=== PATIENT | male | born 1995 | race Caucasian/White ===

== ENCOUNTER 2018-11-26 16:05 | Emergency (ER) | payer OTHER ==
--- NOTE | 2018-11-26 17:24 | EDM.PDOC ---
ED HPI GENERAL MEDICAL PROBLEM - General Chief Complaint: Back Pain or Injury Stated Complaint: PAIN Time Seen by Provider: 11/26/18 17:16 Source of Information: Reports: Patient, Family History Limitations: Reports: No Limitations - History of Present Illness INITIAL COMMENTS - FREE TEXT/NARRATIVE: Alert very pleasant 21-year-old gentleman presents the ER for some upper back discomfort. Patient presents with significant mother and father for evaluation. Patient started having some upper back discomfort 2-3 days ago. Unfortunately symptoms of progressively gotten worse. Patient has been doing some pushing pulling lifting twisting and bending but not necessarily new worse or different than typical behavior for activity. Patient states he now has increased pain with deep respirations. He has increased pain with movement. Denies any cough or upper respiratory tract symptoms. Patient denies any fever, chills or sweats shortness of breath or chest pain. Patient is unable to localize pain in his upper back and does radiate around to his abdomen. He denies any pain or burning with urination he denies any diarrhea or constipation he denies any lower back pain. Denies any loss of bowel or bladder function. Denies any urinary concerns. Patient states he had mono last summer and is concerned that he may have recurrent mono. Patient is also concerned that he had a tick bite last fall and was treated for Lyme's disease and has concerns. Patient states yesterday he noticed increase weakness and fatigue while walking around the [place] with his significant other. She has not had a recurrence of that concern. Onset: Gradual Upper Back Pain Score (Numeric/FACES): 6 - Related Data Allergies Allergy/AdvReac Type Severity Reaction Status Date / Time No Known Allergies Allergy Verified 11/26/18 16:59 Home Meds: Home Meds Cyclobenzaprine [Flexeril] 5 - 10 mg PO TID PRN 10 Days #15 tab 11/26/18 [Rx] Past Medical History - Infectious Disease History Infectious Disease History: Reports: Mononucleosis Other Infectious Disease History: tick bite and treated for lyme disease full antibiotic course 1-2 yrs ago Social & Family History - Tobacco Use Smoking Status *Q: Never Smoker - Caffeine Use Caffeine Use: Reports: Coffee - Recreational Drug Use Recreational Drug Use: No ED ROS GENERAL - Review of Systems Review Of Systems: ROS reveals no pertinent complaints other than HPI. ED EXAM,LOWER BACK PAIN/INJURY - Physical Exam Exam: See Below Exam Limited By: No Limitations General Appearance: Alert, WD/WN, No Apparent Distress, Mild Distress Eye Exam: Bilateral Eye: EOMI, PERRL Ears: Normal External Exam, Hearing Grossly Normal Nose: Normal Inspection, Normal Mucosa, No Blood Throat/Mouth: Normal Inspection, Normal Lips, Normal Teeth, Normal Voice, No Airway Compromise Head: Atraumatic, Normocephalic Neck: Normal Inspection, Supple, Non-Tender, Full Range of Motion Respiratory/Chest: No Respiratory Distress, Lungs Clear, Normal Breath Sounds, No Accessory Muscle Use, Chest Non-Tender Cardiovascular: Normal Peripheral Pulses, Regular Rate, Rhythm GI/Abdominal: Normal Bowel Sounds, Soft, Non-Tender, No Organomegaly, No Distention, No Abnormal Bruit, No Mass Back Exam: Normal Inspection, Decreased Range of Motion, Paraspinal Tenderness ( left upper thoracic spine. No midline tenderness or pain with percussion. ) Extremities: Normal Inspection, Normal Range of Motion, Non-Tender, No Pedal Edema, Normal Capillary Refill Neurological: Alert, Normal Mood/Affect, Normal Dorsiflexion, CN II-XII Intact, Normal Plantar Flexion, Normal Gait, Normal Reflexes, No Motor/Sensory Deficits , Oriented x 3 Psychiatric: Normal Affect, Normal Mood Skin Exam: Warm Course - Vital Signs Last Recorded V/S: Last Vital Signs Temp 36.6 C 11/26/18 17:00 Pulse 72 11/26/18 17:00 Resp 14 11/26/18 17:00 BP 154/94 H 11/26/18 17:00 Pulse Ox 99 11/26/18 17:00 - Orders/Labs/Meds Orders: Active Orders 24 hr Category Date Time Status EKG Documentation Completion [RC] ASDIRECTED Care 11/26/18 17:30 Active Chest 2V [CR] Stat Exams 11/26/18 17:29 Taken EKG 12 Lead [EK] Stat Ther 11/26/18 17:29 Ordered Labs: Laboratory Tests 11/26/18 11/26/18 11/26/18 Range/Units 17:29 17:29 17:29 WBC 8.7 (4.5-11.0) K/uL RBC 4.83 (4.30-5.90) M/uL Hgb 15.1 H (12.0-15.0) g/dL Hct 43.9 (40.0-54.0) % MCV 91 (80-98) fL MCH 31 (27-31) pg MCHC 34 (32-36) % Plt Count 134 L (150-400) K/uL Neut % (Auto) 57 (36-66) % Lymph % (Auto) 33 (24-44) % Armstrong % (Auto) 8 H (2-6) % Eos % (Auto) 1 L (2-4) % Baso % (Auto) 1 (0-1) % D-Dimer, Quantitative < 100 (0.0-400.0) ng/mL Sodium 138 L (140-148) mmol/L Potassium 3.8 (3.6-5.2) mmol/L Chloride 102 (100-108) mmol/L Carbon Dioxide 32 (21-32) mmol/L Anion Gap 7.8 (5.0-14.0) mmol/L BUN 14 (7-18) mg/dL Creatinine 1.1 (0.8-1.3) mg/dL Est Cr Clr Drug Dosing 119.04 mL/min Estimated GFR (MDRD) > 60 (>60) Glucose 90 (74-106) mg/dL Calcium 9.4 (8.5-10.1) mg/dL - Radiology Interpretation Free Text/Narrative:: CXR PA/LAT: No significant acute cardiopulmonary findings noted. Radiology report pending. Departure - Departure Time of Disposition: 19:03 Disposition: Home, Self-Care 01 Clinical Impression: Muscle strain, Upper back pain on left side - Discharge Information Prescriptions: Cyclobenzaprine [Flexeril] 5 - 10 mg PO TID PRN 10 Days #15 tab PRN Reason: Muscle Spasm Instructions: Acute Back Pain, Adult, Musculoskeletal Pain Referrals: PCP,None [Primary Care Provider] - Forms: ED Department Discharge Additional Instructions: 1. Ice 15-20 minutes 3-4 times per day alternate with heat 15-20 minutes. 2. Stretch and increase use per comfort. 2. Flexeril 5-10 mg every 6-8 hrs prn muscle spasms and pain. 4. Ibuprofen 600-800mg every 6-8 hrs with food for inflammation pain and swelling. 5. Follow information given. 6. See PCP in 2-3 weeks if not improving sooner if symptoms worsen or concerns. - My Orders Last 24 Hours: My Active Orders 11/26/18 17:29 Chest 2V [CR] Stat EKG 12 Lead [EK] Stat 11/26/18 17:30 EKG Documentation Completion [RC] ASDIRECTED - Assessment/Plan Last 24 Hours: My Active Orders 11/26/18 17:29 Chest 2V [CR] Stat EKG 12 Lead [EK] Stat 11/26/18 17:30 EKG Documentation Completion [RC] ASDIRECTED Plan: 1. Ice 15-20 minutes 3-4 times per day alternate with heat 15-20 minutes. 2. Stretch and increase use per comfort. 2. Flexeril INSTYMED 5-10 mg every 6-8 hrs prn muscle spasms and pain. 4. Ibuprofen 600-800mg every 6-8 hrs with food for inflammation pain and swelling. 5. Follow information given. 6. See PCP in 2-3 weeks if not improving sooner if symptoms worsen or concerns.
--- NOTE | 2018-11-26 19:36 | CRLCR ---
INDICATION: Pain with respiration and upper back pain. TECHNIQUE: PA and lateral chest x-ray 6 views. FINDINGS: Heart size normal. Lungs clear without infiltrate. Chest otherwise negative without acute disease. Dictated by Sander Wu MD @ Nov 26 2018 7:34PM Signed by Dr. Sander Wu @ Nov 26 2018 7:35PM
== END 2018-11-26 19:44 | disposition home or self-care (01) ==
LOC: JP.ED 16:05
DX: S29.012A Strain of muscle and tendon of back wall of thorax, initial encounter (principal); Z79.899 Other long term (current) drug therapy; X50.0XXA Overexertion from strenuous movement or load, initial encounter
CPT/HCPCS: 36415; 71046; 80048; 85025; 85379; 93005; 99284-25